=== PATIENT | female | born 1955 | race Caucasian/White ===

== ENCOUNTER 2016-11-22 15:41 | Inpatient (IN) | payer MEDICARE ==
[~2016-11-22] VITALS: Ht 160 cm; Wt 86.8 kg
[2016-11-22 19:00] LABS: HEMOGLOBIN 13.9 gm/dl (12.3-15.3); RED BLOOD COUNT 4.43 M/UL (4.00-5.10); WHITE BLOOD COUNT 12.3 K/UL (4.5-11.0)
[2016-11-22 19:01] LABS: BUN/CREATININE RATIO 16 (0-10)
[2016-11-23] MEDS ORDERED: HYZAAR 100-251 EACH PO (04:27)
[2016-11-23] MEDS ORDERED: PROZAC20 MG PO (04:27)
[2016-11-23] MEDS ORDERED: NEXIUM40 MG PO (04:27)
[2016-11-23 07:18] LABS: HEMOGLOBIN 12.5 gm/dl (12.3-15.3)
[2016-11-23 07:25] LABS: RED BLOOD COUNT 3.98 M/UL (4.00-5.10)
[2016-11-23 07:37] LABS: BUN/CREATININE RATIO 17 (0-10)
[2016-11-24 04:16] LABS: HEMOGLOBIN 10.6 gm/dl (12.3-15.3); WHITE BLOOD COUNT 10.5 K/UL (4.5-11.0)
[2016-11-24 04:21] LABS: RED BLOOD COUNT 3.51 M/UL (4.00-5.10)
[2016-11-24 04:26] LABS: BUN/CREATININE RATIO 14 (0-10)
[2016-11-24] MEDS ORDERED: TENORMIN 50 MG50 MG PO (17:36)
[2016-11-24] MEDS ORDERED: ROXICODONE TAB 55 MG PO (17:38)
== END 2016-11-24 19:45 | disposition home health service (06) | DRG 494 ==
LOC: ER1 15:41 → PROG CARE 18:00 → CCU 18:00 → ZEROF 18:00 → CCU 11-23 04:21 → PROG CARE 11-23 22:37
PROVIDERS: Internal Medicine; Orthopaedic Surgery; Physician Assistant Medical; ADMIT Internal Medicine
PROC: 0PSD04Z Reposition Left Humeral Head with Internal Fixation Device, Open Approach (ICD-10-PCS; principal; 2016-11-23 14:30)
DX: S42.292A Other displaced fracture of upper end of left humerus, initial encounter for closed fracture (principal); S42.255A Nondisplaced fracture of greater tuberosity of left humerus, initial encounter for closed fracture; S00.31XA Abrasion of nose, initial encounter; W01.190A Fall on same level from slipping, tripping and stumbling with subsequent striking against furniture, initial encounter; Y92.019 Unspecified place in single-family (private) house as the place of occurrence of the external cause; I48.91 Unspecified atrial fibrillation; E87.6 Hypokalemia; I10 Essential (primary) hypertension; R74.0 Nonspecific elevation of levels of transaminase and lactic acid dehydrogenase [LDH]; E66.9 Obesity, unspecified; Z68.33 Body mass index [BMI] 33.0-33.9, adult; F32.9 Major depressive disorder, single episode, unspecified; Z98.890 Other specified postprocedural states; Z82.49 Family history of ischemic heart disease and other diseases of the circulatory system; E78.5 Hyperlipidemia, unspecified; Z88.0 Allergy status to penicillin; Z88.8 Allergy status to other drugs, medicaments and biological substances; Z88.2 Allergy status to sulfonamides; Z79.899 Other long term (current) drug therapy
CPT/HCPCS: ECHO; 36415; 71010; 73030; 73060; 73200; 76000; 80053; 81001; 82550; 82553; 82962; 83735; 83874; 83880; 84443; 84484; 85025; 85027; 85610; 85730; 93005; 93306; 96374; 96375; 96376; 97535; 99285; C1713; C9113; J0690; J2250; J2270; J2370; J2405; J2710; J2795; J3010; J7030; J7120

== ENCOUNTER → 2016-12-18 | Outpatient (CLI) | payer MEDICARE ==
[~2016-12-18] MED LIST: HYZAAR 100-251 EACH PO; NEXIUM40 MG PO; PROZAC20 MG PO; ROXICODONE TAB 55 MG PO; TENORMIN 50 MG50 MG PO
== END ==
LOC: HEART 5 08:41
DX: I48.91 Unspecified atrial fibrillation (principal)